=== PATIENT | male | born 1970 | race Caucasian/White ===

== ENCOUNTER 2019-03-16 08:09 | Day surgery (SDC) | payer MEDICAID ==
[~2019-03-16] VITALS: Ht 177.8 cm; Wt 81.8 kg
[2019-03-16] VITALS (7 sets, daily range): BP systolic 93–144; BP diastolic 63–76
[~2019-03-16 08:09] MED LIST: IBUP-1986 PO
[2019-03-16] MEDS ORDERED: MIDAZolam 5mg/5ml vial ONE (08:39)
[2019-03-16] MEDS ORDERED: LIDOcaine Viscous 15ml cup ONE (08:39)
[2019-03-16] MEDS ORDERED: fentaNYL/PF 50MCG/1 ML 2ML syringe ONE (08:39)
[2019-03-16] MEDS ORDERED: OMEP-50 (08:50)
[2019-03-16] MEDS ORDERED: BUPR1FIL3 (08:50)
== END 2019-03-16 11:25 | disposition home or self-care (01) ==
LOC: GI LAB 08:09
PROVIDERS: ATTEND Internal Medicine Gastroenterology
DX: Z12.11 Encounter for screening for malignant neoplasm of colon (principal); R11.0 Nausea; D12.3 Benign neoplasm of transverse colon; K62.1 Rectal polyp; K64.8 Other hemorrhoids; K57.30 Diverticulosis of large intestine without perforation or abscess without bleeding; K29.50 Unspecified chronic gastritis without bleeding; Z79.899 Other long term (current) drug therapy
CPT/HCPCS: 43239; 45380; 45385; 99152; 99153; C1773; J2250; J3010; J7040; A4620

== ENCOUNTER 2019-07-12 20:38 | Emergency (ER) | payer MEDICAID ==
[~2019-07-12] VITALS: Ht 177.8 cm; Wt 76.0 kg
[~2019-07-12 20:38] MED LIST changes: +BUPR1FIL3; +OMEP-50
[2019-07-12 21:10] LABS: BASOPHILS # (AUTO) 0.1 X10'3 (0-0.2); BASOPHILS % (AUTO) 0.7 % (0-1); EOSINOPHILS # (AUTO) 0.1 X10'3 (0-0.9); EOSINOPHILS % (AUTO) 1.3 % (0-6); HEMATOCRIT 44.7 % (42.0-52.0); HEMOGLOBIN 15.7 g/dl (14.0-17.9); LYMPHOCYTES # (AUTO) 2.4 X10'3 (1.1-4.8); LYMPHOCYTES % (AUTO) 28.2 % (21-51); MEAN CORPUSCULAR HEMOGLOBIN 33.1 PG (27.0-31.0); MEAN CORPUSCULAR HGB CONC 35.2 g/dL (33.0-36.5); MEAN CORPUSCULAR VOLUME 94.1 FL (78-98); MEAN PLATELET VOLUME 9.3 FL (7.4-10.4); MONOCYTES # (AUTO) 0.6 X10'3 (0-0.9); MONOCYTES % (AUTO) 7.3 % (2-12); NEUTROPHILS # (AUTO) 5.3 X10'3 (1.8-7.7); NEUTROPHILS % (AUTO) 62.5 % (42-75); PLATELET COUNT 171 X10'3 (140-440); RED BLOOD COUNT 4.75 X10'6 (4.70-6.10); RED CELL DISTRIBUTION WIDTH 13.6 % (11.5-14.5); WHITE BLOOD COUNT 8.5 X10'3 (4.5-11.0)
[2019-07-12 21:19] LABS: ALANINE AMINOTRANSFERASE 29 U/L (12-78); ALBUMIN 4.1 G/DL (3.4-5.0); ALBUMIN/GLOBULIN RATIO 1.2 (1.1-1.5); ALKALINE PHOSPHATASE 67 IU/L (46-116); ANION GAP 9 (8-16); ASPARTATE AMINO TRANSFERASE 21 U/L (10-37); BILIRUBIN,TOTAL 0.5 MG/DL (0.1-1.0); BLOOD UREA NITROGEN 9 MG/DL (7-18); BUN/CREATININE RATIO 8.7 (5.4-32.0); CALCIUM 8.8 MG/DL (8.5-10.1); CHLORIDE 104 MMOL/L (99-107); CREATININE 1.04 MG/DL (0.60-1.10); GLUCOSE 72 MG/DL (70-104); POTASSIUM 3.9 MMOL/L (3.5-5.1); SODIUM 140 MMOL/L (135-145); TOTAL CARBON DIOXIDE 27.3 MMOL/L (24-32); TOTAL PROTEIN 7.4 G/DL (6.4-8.2); eGFR 76 ML/MIN
--- NOTE | 2019-07-12 22:53 | NUR ---
WHEN i ENTERED THE ROOM PT WAS ON THE MONITOR WITH VS SHOWING.
--- NOTE | 2019-07-12 22:53 | NUR ---
AFTER ENQUIRING TO WHAT BRINGS THEM IN TODAY. THE PT'S VISITOR GOT AGGITATED STATING THEY WERE WAITING FOR A VERY LONG TIME FOR ANYONE TO COME INTO THE ROOM. I APOLOGIZED AND STATED I JUST GOT AN AMBULANCE IN MY OTHER ROOM WHICH I HAVE TO TAKE FIRST. THE VISITOR WAS AGITATED EVEN MORE ABOUT THE WAIT. SHE STATED HE HAS HIGH BLOOD PRESSURE AND AN KELLY. PTS CURRENT VS 158/96 HR 70 SAO2 95%. I STATED HIS VITALS SIGNS LOOK GREAT RIGHT NOW TRYING TO REASSURE THEM. THE AGGITATION INCREASED AND THE VISITOR STATED WE ARE LEAVING.
--- NOTE | 2019-07-12 23:03 | NUR ---
THE PT LEFT WITH OUT BEING SEEN BY PROVIDER.
--- NOTE | 2019-07-12 23:24 | NUR ---
At 22:33 PT's came and found me in room #13 cleaning, while doing that PTs started to get aggitated at me that nobody had been in the room to see him or check his BP. I went into PTs room and hooked PT to BP, pulse, sp02, and cardiac 5 lead due to PTs saying that he was here for High BP. During the time that I hooked the PT to the monitor, the stated that this is ridiculous that he had to wait in his room this long without being seen by a nurse or provider even tho they had only been in the room for 20 min or so. Also PTs said to me that if BP was high that they would leave and go to [facility].
[2019-07-12 23:43] VITALS: BP 158/96
== END 2019-07-12 23:46 | disposition left against medical advice (07) ==
LOC: ER 20:38
DX: R42 Dizziness and giddiness (principal); Z53.21 Procedure and treatment not carried out due to patient leaving prior to being seen by health care provider
CPT/HCPCS: 36415; 71045; 80053; 84484; 85025; 93005

== ENCOUNTER 2019-10-09 08:48 | Emergency (ER) | payer MEDICAID ==
[~2019-10-09] VITALS: Ht 177.8 cm; Wt 72.7 kg
[2019-10-09] MEDS ORDERED: HYDROcodone/acetaminophen 10/325mg tab PO ONE (09:25)
[2019-10-09] MEDS ORDERED: ketorolac trometh inj. 60 MG/2 ML VIAL IM ONE (09:25)
[2019-10-09] MEDS ORDERED: orphenadrine citrate 60mg/2ml inj. IM ONE (09:25)
[2019-10-09 09:37] VITALS: BP 159/91
[2019-10-09] MEDS ORDERED: ORPH100T2 PO (09:38)
[2019-10-09] MEDS ORDERED: NAPR-56 PO (09:38)
== END 2019-10-09 10:01 | disposition home or self-care (01) ==
LOC: ER 08:48
DX: S39.012A Strain of muscle, fascia and tendon of lower back, initial encounter (principal); M54.41 Lumbago with sciatica, right side; G89.29 Other chronic pain; F17.200 Nicotine dependence, unspecified, uncomplicated; Z90.49 Acquired absence of other specified parts of digestive tract; Z56.0 Unemployment, unspecified; Z59.0 Homelessness; Z88.8 Allergy status to other drugs, medicaments and biological substances; Z88.5 Allergy status to narcotic agent; Z79.899 Other long term (current) drug therapy; X58.XXXA Exposure to other specified factors, initial encounter; Y93.89 Activity, other specified; Y92.89 Other specified places as the place of occurrence of the external cause; Y99.8 Other external cause status
CPT/HCPCS: 96372; 99284; J1885; J2360

== ENCOUNTER 2022-07-12 22:18 | Inpatient (IN) | payer MEDICAID ==
[~2022-07-12] VITALS: Ht 177.8 cm; Wt 85.9 kg
[~2022-07-12 22:18] MED LIST changes: -OMEP-50; +OMEP20CA16; +ORPH100T2 PO
[2022-07-12] MEDS ORDERED: acetaminophen 325mg tablet PO ONE (22:50)
[2022-07-12] MEDS ORDERED: morphine 4 MG/ML inj SYRINge IV ONE (22:50)
[2022-07-12] MEDS ORDERED: ondansetron/PF 4mg/2ml inj IV ONE (22:50)
[2022-07-12] MEDS ORDERED: normal saline 1000ML IV soln IVB ONE (22:50)
[2022-07-12] MEDS ORDERED: CefTRIAXone/D5W-Rocephin 1gm 50 ML IV ONE (22:50)
[2022-07-12 23:27] LABS: BASOPHILS # (AUTO) 0.1 X10'3 (0-0.2); BASOPHILS % (AUTO) 0.3 % (0-1); EOSINOPHILS % (AUTO) 0.1 % (0-6); HEMATOCRIT 46.7 % (42.0-52.0); HEMOGLOBIN 16.4 g/dl (14.0-17.9); LYMPHOCYTES # (AUTO) 1.6 X10'3 (1.1-4.8); LYMPHOCYTES % (AUTO) 8.1 % (21-51); MEAN CORPUSCULAR HEMOGLOBIN 34.4 PG (27.0-31.0); MEAN CORPUSCULAR HGB CONC 35.1 g/dL (33.0-36.5); MEAN PLATELET VOLUME 9.8 FL (7.4-10.4); MONOCYTES # (AUTO) 1.4 X10'3 (0-0.9); MONOCYTES % (AUTO) 7.2 % (2-12); NEUTROPHILS # (AUTO) 16.4 X10'3 (1.8-7.7); NEUTROPHILS % (AUTO) 84.3 % (42-75); PLATELET COUNT 175 X10'3 (140-440); RED BLOOD COUNT 4.77 X10'6 (4.70-6.10); RED CELL DISTRIBUTION WIDTH 13.5 % (11.5-14.5); WHITE BLOOD COUNT 19.4 X10'3 (4.5-11.0)
[2022-07-12 23:30] LABS: ALANINE AMINOTRANSFERASE 38 U/L (12-78); ALBUMIN 4.1 G/DL (3.4-5.0); ALBUMIN/GLOBULIN RATIO 1.1 (1.1-1.5); ALKALINE PHOSPHATASE 90 IU/L (46-116); ANION GAP 9 (8-16); ASPARTATE AMINO TRANSFERASE 27 U/L (10-37); BILIRUBIN,TOTAL 1.6 MG/DL (0.1-1.0); BLOOD UREA NITROGEN 13 MG/DL (7-18); BUN/CREATININE RATIO 9.2 (5.4-32.0); CHLORIDE 98 MMOL/L (99-107); CREATININE 1.41 MG/DL (0.60-1.10); GLUCOSE 151 MG/DL (70-104); LIPASE 54 U/L (73-393); POTASSIUM 3.6 MMOL/L (3.5-5.1); SODIUM 133 MMOL/L (135-145); TOTAL CARBON DIOXIDE 25.6 MMOL/L (24-32); TOTAL PROTEIN 7.7 G/DL (6.4-8.2); eGFR 53 ML/MIN
[2022-07-12 23:45] LABS: CALCIUM 8.9 MG/DL (8.5-10.1)
[2022-07-13] MEDS ORDERED: iohexol 300mg/ml 100ml inj. ONE (00:30)
[2022-07-13] MEDS ORDERED: morphine 4 MG/ML inj SYRINge IV ONE (02:15)
[2022-07-13] MEDS ORDERED: normal saline 1000ML IV soln IVB ONE (02:30)
[2022-07-13] MEDS ORDERED: metroNIDAZOLE-Flagyl 500mg/NS 100 ML IV ONE (02:30)
[2022-07-13] MEDS ORDERED: potassium Cl 20 mEq SR tablet PO PRN (03:00)
[2022-07-13] MEDS ORDERED: potassium Cl 40MEQ/1/2NS 520ml 520 ML IV PRN (03:00)
[2022-07-13] MEDS ORDERED: magnesium 4gm in 100ml NS 100 ML IV PRN (03:00)
[2022-07-13] MEDS ORDERED: ondansetron/PF 4mg/2ml inj IV PRN (03:00)
[2022-07-13] MEDS: normal saline 1000ml 1,000 ML IV SCH ×3 (03:00→16:03)
[2022-07-13] MEDS ORDERED: acetaminophen 325mg tablet PO PRN ×2 (03:00)
[2022-07-13] MEDS ORDERED: magnesium Cl slow-release 64mg tablet PO PRN (03:00)
[2022-07-13] MEDS ORDERED: VANCOMYCIN 1,500MG in normal saline IV soln 300 ML IV ONE (03:10)
[2022-07-13] MEDS ORDERED: HYDROcodone/acetaminophen 5mg/325mg tablet PO PRN ×2 (03:50→11:55)
[2022-07-13] MEDS ORDERED: morphine 2 MG/ML inj. syringe IV PRN ×3 (03:50→15:50)
[2022-07-13] MEDS ORDERED: HYDROcodone/acetaminophen 10/325mg tab PO PRN ×2 (03:50→15:50)
[2022-07-13 04:01] LABS: CLARITY,URINE CLEAR (Clear); COLOR,URINE AMBER (Yellow); GLUCOSE, URINE NEGATIVE (Neg); KETONES,URINE NEGATIVE (Neg); LEUKOCYTE ESTERASE ,URINE NEGATIVE (Neg); NITRITES, URINE NEGATIVE (Neg); OCCULT BLOOD,URINE NEGATIVE (Neg); PH,URINE 6.5 (4.8-8.0); PROTEIN,URINE TRACE mg/dl (Neg); UROBILINOGEN,URINE 0.2 E.U/dL (0.2-1.0)
[2022-07-13 04:04] LABS: UA COLLECTION TYPE CLN CATCH MIDSTREAM
[2022-07-13] MEDS: nicotine 14mg patch - 24hr TD SCH ×2 (04:05→08:35)
[2022-07-13 04:13] LABS: BACTERIA,URINE NONE SEEN /HPF (Neg); MUCUS STRANDS FEW /LPF (Neg); RBC,URINE 0-2 /HPF (0-2); SQUAMOUS EPITHELIAL CELL,UR FEW /LPF (FEW); WBC,URINE 0-4 /HPF (0-4)
[2022-07-13] MEDS: piperacillin/tazo 3.375gm/50ml 50 ML IV SCH ×2 (08:23→16:04)
[2022-07-13] MEDS: heparin, porcine 5000 units/ml vial SQ SCH ×2 (08:24→20:27)
--- NOTE | 2022-07-13 12:25 | NUR ---
GIRLFRIEND [phone] SMITA ALVARADO. WANTED TO CALL AND INFORM NURSE THAT PATIENT IS A DAILY DRINKER
[2022-07-13] MEDS ORDERED: NO HOME MEDS (13:02)
--- NOTE | 2022-07-13 15:00 | NUR ---
Received report from ED RN, Ivan
[2022-07-13 15:45] VITALS: BP 145/100
[2022-07-13] MEDS: morphine 2 MG/ML inj. syringe IV PRN ×2 (15:45→20:26)
[2022-07-13] MEDS ORDERED: vancomycin/NS 1 GM ADD-VANTAGE 250 ML IV SCH (17:00)
[2022-07-13 17:30] VITALS: BP 150/95
[2022-07-13] MEDS: HYDROcodone/acetaminophen 10/325mg tab PO PRN ×2 (17:49→22:08)
[2022-07-13] MEDS ORDERED: temazepam 15mg capsule PO PRN (21:00)
[2022-07-13 22:00] VITALS: BP 160/109
[2022-07-14] MEDS: piperacillin/tazo 3.375gm/50ml 50 ML IV SCH ×4 (00:04→23:52)
[2022-07-14] MEDS: morphine 2 MG/ML inj. syringe IV PRN ×6 (00:04→20:50)
[2022-07-14] MEDS: normal saline 1000ml 1,000 ML IV SCH ×2 (01:41→11:52)
[2022-07-14] MEDS: HYDROcodone/acetaminophen 10/325mg tab PO PRN ×6 (02:04→22:24)
--- NOTE | 2022-07-14 05:00 | NUR ---
Dr Witt notified of DM=569/120 & that he has had mostly elevated BPs. No orders received.
[2022-07-14 06:02] LABS: BASOPHILS # (AUTO) 0.1 X10'3 (0-0.2); BASOPHILS % (AUTO) 0.5 % (0-1); EOSINOPHILS # (AUTO) 0.2 X10'3 (0-0.9); EOSINOPHILS % (AUTO) 1.9 % (0-6); HEMATOCRIT 39.5 % (42.0-52.0); LYMPHOCYTES # (AUTO) 1.5 X10'3 (1.1-4.8); LYMPHOCYTES % (AUTO) 13.1 % (21-51); MEAN CORPUSCULAR HGB CONC 35.5 g/dL (33.0-36.5); MEAN CORPUSCULAR VOLUME 98.5 FL (78-98); MEAN PLATELET VOLUME 10.4 FL (7.4-10.4); MONOCYTES # (AUTO) 0.8 X10'3 (0-0.9); MONOCYTES % (AUTO) 7.3 % (2-12); NEUTROPHILS # (AUTO) 8.7 X10'3 (1.8-7.7); NEUTROPHILS % (AUTO) 77.2 % (42-75); PLATELET COUNT 130 X10'3 (140-440); RED BLOOD COUNT 4.01 X10'6 (4.70-6.10); RED CELL DISTRIBUTION WIDTH 13.4 % (11.5-14.5); WHITE BLOOD COUNT 11.2 X10'3 (4.5-11.0)
[2022-07-14 06:04] LABS: ALANINE AMINOTRANSFERASE 32 U/L (12-78); ALBUMIN 3.2 G/DL (3.4-5.0); ALBUMIN/GLOBULIN RATIO 0.9 (1.1-1.5); ALKALINE PHOSPHATASE 70 IU/L (46-116); ANION GAP 6 (8-16); ASPARTATE AMINO TRANSFERASE 23 U/L (10-37); BILIRUBIN,TOTAL 1.3 MG/DL (0.1-1.0); BLOOD UREA NITROGEN 10 MG/DL (7-18); BUN/CREATININE RATIO 8.6 (5.4-32.0); CHLORIDE 100 MMOL/L (99-107); CREATININE 1.16 MG/DL (0.60-1.10); GLUCOSE 109 MG/DL (70-104); POTASSIUM 3.3 MMOL/L (3.5-5.1); SODIUM 131 MMOL/L (135-145); TOTAL CARBON DIOXIDE 24.7 MMOL/L (24-32); TOTAL PROTEIN 6.7 G/DL (6.4-8.2); eGFR 66 ML/MIN
[2022-07-14 06:40] VITALS: BP 183/116
--- NOTE | 2022-07-14 06:40 | NUR ---
Problems reprioritized. Patient report given, questions answered & plan of care reviewed with MILE [place].
[2022-07-14] MEDS: nicotine 14mg patch - 24hr TD SCH (07:40)
[2022-07-14] MEDS: heparin, porcine 5000 units/ml vial SQ SCH ×2 (07:40→20:49)
[2022-07-14] MEDS: potassium Cl 20 mEq SR tablet PO PRN ×3 (07:43→22:25)
[2022-07-14] MEDS ORDERED: lisinopril 10 MG tablet PO SCH (08:00)
[2022-07-14 10:00] VITALS: BP 182/122
--- NOTE | 2022-07-14 10:09 | NUR ---
PAGER ID: [phone] MESSAGE: JOSE ROBERTO TREADWELL [phone] RE: Thang QUINTANILLA [id number]. PT REMAINS HYPERTENSIVE, SYSTOLIC 182, PLEASE ADVISE
[2022-07-14] MEDS ORDERED: hydrALAZINE 20mg/ml inj. IV PRN (11:35)
[2022-07-14 12:46] VITALS: BP 168/106
[2022-07-14] MEDS ORDERED: VANCOMYCIN LEVEL IV ONE (16:30)
[2022-07-14 18:00] VITALS: BP 166/108
[2022-07-14 20:50] VITALS: BP 169/113
[2022-07-14 22:00] VITALS: BP 165/106
[2022-07-15] MEDS: morphine 2 MG/ML inj. syringe IV PRN (01:16)
[2022-07-15 01:39] VITALS: BP 172/121
[2022-07-15] MEDS: HYDROcodone/acetaminophen 10/325mg tab PO PRN ×5 (04:35→21:56)
[2022-07-15 06:19] LABS: BASOPHILS % (AUTO) 0.4 % (0-1); EOSINOPHILS # (AUTO) 0.2 X10'3 (0-0.9); EOSINOPHILS % (AUTO) 2.9 % (0-6); HEMATOCRIT 39.7 % (42.0-52.0); HEMOGLOBIN 13.7 g/dl (14.0-17.9); LYMPHOCYTES # (AUTO) 1.2 X10'3 (1.1-4.8); LYMPHOCYTES % (AUTO) 14.2 % (21-51); MEAN CORPUSCULAR HEMOGLOBIN 34.8 PG (27.0-31.0); MEAN CORPUSCULAR HGB CONC 34.6 g/dL (33.0-36.5); MEAN CORPUSCULAR VOLUME 100.5 FL (78-98); MEAN PLATELET VOLUME 10.7 FL (7.4-10.4); MONOCYTES # (AUTO) 0.7 X10'3 (0-0.9); NEUTROPHILS # (AUTO) 6.2 X10'3 (1.8-7.7); NEUTROPHILS % (AUTO) 74.5 % (42-75); PLATELET COUNT 145 X10'3 (140-440); RED BLOOD COUNT 3.95 X10'6 (4.70-6.10); RED CELL DISTRIBUTION WIDTH 13.4 % (11.5-14.5); WHITE BLOOD COUNT 8.4 X10'3 (4.5-11.0)
[2022-07-15 06:40] LABS: ALANINE AMINOTRANSFERASE 29 U/L (12-78); ALBUMIN 3.1 G/DL (3.4-5.0); ALBUMIN/GLOBULIN RATIO 0.9 (1.1-1.5); ALKALINE PHOSPHATASE 68 IU/L (46-116); ANION GAP 8 (8-16); ASPARTATE AMINO TRANSFERASE 30 U/L (10-37); BILIRUBIN,TOTAL 0.7 MG/DL (0.1-1.0); BLOOD UREA NITROGEN 7 MG/DL (7-18); BUN/CREATININE RATIO 6.2 (5.4-32.0); CALCIUM 8.4 MG/DL (8.5-10.1); CHLORIDE 101 MMOL/L (99-107); CREATININE 1.13 MG/DL (0.60-1.10); GLUCOSE 90 MG/DL (70-104); POTASSIUM 3.6 MMOL/L (3.5-5.1); SODIUM 134 MMOL/L (135-145); TOTAL CARBON DIOXIDE 25.3 MMOL/L (24-32); TOTAL PROTEIN 6.6 G/DL (6.4-8.2); eGFR 68 ML/MIN
--- NOTE | 2022-07-15 06:53 | NUR ---
Problems reprioritized. Patient report given, questions answered & plan of care reviewed with MILE TELLO.
[2022-07-15 07:00] VITALS: BP 135/82
[2022-07-15 07:36] LABS: LARGE PLATELETS FEW; PLATELET ESTIMATE NORMAL
[2022-07-15] MEDS: piperacillin/tazo 3.375gm/50ml 50 ML IV SCH ×2 (09:25→16:48)
[2022-07-15] MEDS: nicotine 14mg patch - 24hr TD SCH (09:26)
[2022-07-15] MEDS: heparin, porcine 5000 units/ml vial SQ SCH ×2 (09:27→21:54)
[2022-07-15] MEDS: lisinopril 20mg tablet PO SCH ×2 (09:27→21:55)
--- NOTE | 2022-07-15 09:38 | NUR ---
Computer did not scan lisinopril at 0927
[2022-07-15 13:00] VITALS: BP 162/110
[2022-07-15 18:00] VITALS: BP 170/113
[2022-07-15 21:47] VITALS: BP 167/110
[2022-07-16] MEDS: HYDROcodone/acetaminophen 10/325mg tab PO PRN ×3 (01:49→09:54)
[2022-07-16 01:50] VITALS: BP 146/91
[2022-07-16] MEDS: piperacillin/tazo 3.375gm/50ml 50 ML IV SCH ×2 (01:59→09:22)
[2022-07-16] MEDS: normal saline 1000ml 1,000 ML IV SCH (02:00)
--- NOTE | 2022-07-16 06:40 | NUR ---
Problems reprioritized. Patient report given, questions answered & plan of care reviewed with MILE SAUCEDO.
[2022-07-16 07:00] VITALS: BP 134/88
[2022-07-16 08:08] LABS: ALANINE AMINOTRANSFERASE 41 U/L (12-78); ALBUMIN 3.2 G/DL (3.4-5.0); ALBUMIN/GLOBULIN RATIO 0.9 (1.1-1.5); ALKALINE PHOSPHATASE 78 IU/L (46-116); ANION GAP 5 (8-16); ASPARTATE AMINO TRANSFERASE 46 U/L (10-37); BILIRUBIN,TOTAL 0.6 MG/DL (0.1-1.0); BLOOD UREA NITROGEN 8 MG/DL (7-18); BUN/CREATININE RATIO 6.1 (5.4-32.0); CALCIUM 8.9 MG/DL (8.5-10.1); CHLORIDE 101 MMOL/L (99-107); CREATININE 1.31 MG/DL (0.60-1.10); GLUCOSE 108 MG/DL (70-104); POTASSIUM 4.3 MMOL/L (3.5-5.1); SODIUM 133 MMOL/L (135-145); TOTAL CARBON DIOXIDE 27.2 MMOL/L (24-32); TOTAL PROTEIN 6.9 G/DL (6.4-8.2); eGFR 57 ML/MIN
[2022-07-16 09:16] LABS: BASOPHILS % (AUTO) 0.4 % (0-1); EOSINOPHILS # (AUTO) 0.3 X10'3 (0-0.9); EOSINOPHILS % (AUTO) 4.3 % (0-6); HEMATOCRIT 40.4 % (42.0-52.0); HEMOGLOBIN 14.2 g/dl (14.0-17.9); LYMPHOCYTES # (AUTO) 1.2 X10'3 (1.1-4.8); LYMPHOCYTES % (AUTO) 18.6 % (21-51); MEAN CORPUSCULAR HEMOGLOBIN 34.9 PG (27.0-31.0); MEAN CORPUSCULAR HGB CONC 35.2 g/dL (33.0-36.5); MEAN CORPUSCULAR VOLUME 99.3 FL (78-98); MEAN PLATELET VOLUME 10.5 FL (7.4-10.4); MONOCYTES # (AUTO) 0.6 X10'3 (0-0.9); NEUTROPHILS # (AUTO) 4.3 X10'3 (1.8-7.7); NEUTROPHILS % (AUTO) 67.7 % (42-75); PLATELET COUNT 155 X10'3 (140-440); RED BLOOD COUNT 4.07 X10'6 (4.70-6.10); RED CELL DISTRIBUTION WIDTH 13.1 % (11.5-14.5); WHITE BLOOD COUNT 6.4 X10'3 (4.5-11.0)
[2022-07-16 09:22] VITALS: BP_SYST 134
[2022-07-16] MEDS: nicotine 14mg patch - 24hr TD SCH (09:22)
[2022-07-16] MEDS: lisinopril 20mg tablet PO SCH (09:22)
[2022-07-16] MEDS: heparin, porcine 5000 units/ml vial SQ SCH (09:22)
[2022-07-16] MEDS ORDERED: LISI20TA28 PO (10:12)
[2022-07-16] MEDS ORDERED: HYDR-3965 PO (10:12)
[2022-07-16] MEDS ORDERED: METR-159 PO (10:36)
[2022-07-16] MEDS ORDERED: LEVO-65 PO (10:36)
== END 2022-07-16 11:10 | disposition home or self-care (01) | DRG 720 ==
LOC: ER 22:18 → ED HOLD 07-13 03:01 → SUR 3N 07-13 15:33
PROVIDERS: ADMIT Internal Medicine; ATTEND Internal Medicine
PROC: BW211ZZ Computerized Tomography (CT Scan) of Abdomen and Pelvis using Low Osmolar Contrast (ICD-10-PCS; principal; 2022-07-13)
DX: A41.9 Sepsis, unspecified organism (principal); N17.9 Acute kidney failure, unspecified; E87.1 Hypo-osmolality and hyponatremia; K56.7 Ileus, unspecified; K57.92 Diverticulitis of intestine, part unspecified, without perforation or abscess without bleeding; Z20.822 Contact with and (suspected) exposure to COVID-19; F17.210 Nicotine dependence, cigarettes, uncomplicated; I12.9 Hypertensive chronic kidney disease with stage 1 through stage 4 chronic kidney disease, or unspecified chronic kidney disease; E86.0 Dehydration; M54.9 Dorsalgia, unspecified; G89.29 Other chronic pain; N18.30 Chronic kidney disease, stage 3 unspecified; Z90.49 Acquired absence of other specified parts of digestive tract; Z56.0 Unemployment, unspecified; Z59.00 Homelessness unspecified; Z79.899 Other long term (current) drug therapy; Z88.5 Allergy status to narcotic agent; Z88.8 Allergy status to other drugs, medicaments and biological substances
CPT/HCPCS: 36415; 71045; 74177; 80053; 81001; 83605; 83690; 84145; 85008; 85025; 87040; 87502; 87503; 87635; 93005; 99285; C9803; G0378; J0360; J0696; J1644; J2270; J2405; J2543; J3370; J3490; J7030; J7040; Q9967

== ENCOUNTER 2023-03-08 18:08 | Emergency (ER) | payer MEDICAID ==
[~2023-03-08] VITALS: Ht 175.3 cm; Wt 86.4 kg
[~2023-03-08 18:08] MED LIST changes: -BUPR1FIL3; -IBUP-1986 PO; +LISI20TA28 PO; -OMEP20CA16; -ORPH100T2 PO
[2023-03-08] MEDS ORDERED: diphenhydrAMINE 50 mg/ml inj IM STA (19:49)
[2023-03-08] MEDS ORDERED: haloperidol lactate 5mg/ml inj IM ONE (19:50)
[2023-03-08] MEDS ORDERED: LORazepam 2 mg/ml vial IM ONE (19:50)
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
[2023-03-08 20:08] VITALS: TEMP 97.6
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
[2023-03-08] MEDS ORDERED: TETanus/Pertussis (Acell)/Diphther VAC/PF (Tdap-Adult) 0.5ml syringe IMVAC ONE (22:00)
[2023-03-08] MEDS ORDERED: CefTRIAXone 1000mg IM Kit (w/lidocaine diluent) IM ONE (22:00)
--- NOTE | 2023-03-08 22:53 | NUR ---
SPOKE WITH PTS RERE CASTRO) REQUESTING AN UPDATE. SMITA WILL READY TO WEAR DEPARTMENT MANAGER PT WHEN DISCHARGED. CELL: [phone]
--- NOTE | 2023-03-08 23:19 | NUR ---
PT IS AWAKING. PT IS LIGHTLY PULLING AT RESTRAINS AND IS YELLING OUT. PT IS UNABLE TO FOLLOW DIRECTIONS AND STOP YELLING.
[2023-03-08 23:58] LABS: MEAN PLATELET VOLUME 9.9 FL (7.4-10.4); RED BLOOD COUNT 4.38 X10'6 (4.70-6.10)
[2023-03-08 23:59] LABS: BASOPHILS % (AUTO) 0.3 % (0-1); EOSINOPHILS % (AUTO) 0.3 % (0-6); HEMATOCRIT 43.9 % (42.0-52.0); HEMOGLOBIN 15.4 g/dl (14.0-17.9); LYMPHOCYTES # (AUTO) 1.9 X10'3 (1.1-4.8); LYMPHOCYTES % (AUTO) 14.3 % (21-51); MEAN CORPUSCULAR HEMOGLOBIN 35.1 PG (27.0-31.0); MEAN CORPUSCULAR VOLUME 100.2 FL (78-98); MONOCYTES # (AUTO) 0.9 X10'3 (0-0.9); MONOCYTES % (AUTO) 6.6 % (2-12); NEUTROPHILS # (AUTO) 10.5 X10'3 (1.8-7.7); NEUTROPHILS % (AUTO) 78.5 % (42-75); PLATELET COUNT 196 X10'3 (140-440); RED CELL DISTRIBUTION WIDTH 14.1 % (11.5-14.5); WHITE BLOOD COUNT 13.3 X10'3 (4.5-11.0)
[2023-03-09] VITALS: BP 126/75; PULSE 69; RESP 15; O2SAT 97
[2023-03-09 00:01] LABS: ALANINE AMINOTRANSFERASE 49 U/L (12-78); ALBUMIN 3.7 G/DL (3.4-5.0); ALBUMIN/GLOBULIN RATIO 1.1 (1.1-1.5); ALKALINE PHOSPHATASE 78 IU/L (46-116); ANION GAP 15 (8-16); ASPARTATE AMINO TRANSFERASE 42 U/L (10-37); BILIRUBIN,TOTAL 0.3 MG/DL (0.1-1.0); BLOOD UREA NITROGEN 16 MG/DL (7-18); BUN/CREATININE RATIO 8.2 (10.0-20.0); CALCIUM 8.6 MG/DL (8.5-10.1); CHLORIDE 106 MMOL/L (99-107); CREATININE 1.94 MG/DL (0.60-1.10); ETHANOL 246 MG/DL (<10); GLUCOSE 135 MG/DL (70-104); POTASSIUM 3.6 MMOL/L (3.5-5.1); SODIUM 141 MMOL/L (135-145); TOTAL CARBON DIOXIDE 20.1 MMOL/L (24-32); eCRCL 44 ML/MIN; eGFR 36 ML/MIN
--- NOTE | 2023-03-09 00:07 | NUR ---
PT IS AWAKE AND HAS APOLOGIZED FOR HIS BEHAVIOR. PT IS AGREEING TO FOLLOW DIRECTION AND HAS BEEN REMOVED FROM 4 POINT RESTRAINTS. PT GIVEN WATER REQUESTED.
[2023-03-09] MEDS ORDERED: OXYC-149 PO (21:44)
== END 2023-03-09 01:03 | disposition home or self-care (01) ==
LOC: ER 18:09
DX: S61.412A Laceration without foreign body of left hand, initial encounter (principal); X78.8XXA Intentional self-harm by other sharp object, initial encounter; Y93.89 Activity, other specified; Y92.89 Other specified places as the place of occurrence of the external cause; Y99.8 Other external cause status
CPT/HCPCS: 12002; 73130; 80053; 80320; 85025; 90471; 90715; 96372; 99285; J0696; J1200; J1630; J2060; 36415; A4615

== ENCOUNTER 2023-03-09 17:29 | Emergency (ER) | payer MEDICAID ==
[~2023-03-09] VITALS: Ht 177.8 cm; Wt 94.5 kg
[2023-03-09 17:37] VITALS: BP 162/110; PULSE 107; RESP 18; TEMP 98.9; O2SAT 98
[2023-03-09] MEDS ORDERED: OXYC-149 PO (21:44)
[2023-03-09] MEDS ORDERED: HYDROcodone/acetaminophen 10/325mg tab PO ONE (21:45)
== END 2023-03-09 22:00 | disposition home or self-care (01) ==
LOC: ER 17:30
DX: S20.211A Contusion of right front wall of thorax, initial encounter (principal); Z88.8 Allergy status to other drugs, medicaments and biological substances; Z88.5 Allergy status to narcotic agent; Z79.899 Other long term (current) drug therapy; Z98.890 Other specified postprocedural states; X58.XXXA Exposure to other specified factors, initial encounter; Y93.89 Activity, other specified; Y92.89 Other specified places as the place of occurrence of the external cause; Y99.8 Other external cause status
CPT/HCPCS: 71046; 99283